=== PATIENT | female | born 1950 | race Caucasian/White ===

== ENCOUNTER 2017-12-17 07:30 | Inpatient (IN) | payer OTHER ==
[~2017-12-17] VITALS: Ht 154.9 cm; Wt 69.6 kg
[2018-05-10] VITALS (22 sets, daily range): BP systolic 110–171; BP diastolic 61–84; PULSE 56–78; RESP 10–20; Ht 154.9 cm; Wt 69.6 kg
[2018-05-10] MEDS ORDERED: CEFAZOLIN 2 GM/50 ML (PMX) 50 ML IVPB ONE (06:00)
[2018-05-10] MEDS ORDERED: SOD CHLORIDE 0.9% 1,000 ML IV SCH (06:00)
[2018-05-10] MEDS ORDERED: GLYCOPYRROLATE 0.4 MG INJ ONE (07:00)
[2018-05-10] MEDS ORDERED: NEOSTIGMINE 10 MG INJ ONE (07:00)
[2018-05-10] MEDS ORDERED: ROCURONIUM 50 MG INJ ONE (07:00)
[2018-05-10] MEDS ORDERED: ASPI-903 PO (07:15)
[2018-05-10] MEDS ORDERED: METF-849 PO (07:15)
[2018-05-10] MEDS ORDERED: SIMV20TA PO (07:15)
[2018-05-10] MEDS ORDERED: CHOL400T10 PO (07:15)
[2018-05-10] MEDS ORDERED: ALEN70TA5 PO (07:15)
[2018-05-10] MEDS ORDERED: LOSA50TA14 PO (07:15)
[2018-05-10] MEDS ORDERED: BUPIVACAINE 0.25% (MPF) 30 ML INJ ONE (07:42)
--- NOTE | 2018-05-10 07:48 | PREAC ---
Date/Time of Note Date/Time of Note DATE: 05/10/18 TIME: 07:47 Anesthesia Eval and Record Evaluation Time Pre-Procedure Interview DATE: 05/10/18 TIME: 07:47 Age 68 Sex female NPO: 8 hrs Preoperative diagnosis right lower parathyroid adenoma Planned procedure right lower parathyroidectomy Past Medical History Past Medical History: Includes Cardio: HTN, Dyslipidemia Endo: Diabetes GI: Other (fatty liver ) Surgery & Anesthesia Issues No known issue Meds Anticoagulation: No Beta Colleen within 24 hr: No Reason Beta Colleen not given: Pt. not on B-Colleen Reported Medications Cholecalciferol* (Vitamin D*) 400 Unit Tablet, 200 UNIT PO DAILY, TAB 05/10/18 Simvastatin* (Zocor*) 20 Mg Tablet, 20 MG PO QHS, #30 TAB 05/10/18 Aspirin* (Aspirin* Chew) 81 Mg Tab.chew, 81 MG PO DAILY, TAB.CHEW 05/10/18 Metformin* (Glucophage*) 500 Mg Tab, 500 MG PO WITH BREAKFAST DINNE, #30 TAB 05/10/18 Losartan Potassium* (Losartan Potassium*) 50 Mg Tablet, 50 MG PO DAILY, TAB 05/10/18 Alendronate Sodium* (Fosamax*) 70 Mg Tablet, 70 MG PO Q7D, #4 TAB 05/10/18 Current Medications Sodium Chloride 1,000 ml @ 75 mls/hr [id number] IV Last administered on 05/10/18at 07:16; Admin Dose 75 MLS/HR; Start 05/10/18 at 06:00; Stop 05/10/18 at 19:19 Meds reviewed: Yes Allergies Coded Allergies: No Known Drug Allergies (Unverified Allergy, Unknown, 05/10/18) Allergies Reviewed: Yes Labs/Studies Labs Reviewed: Reviewed by anesthesiologist test: N/A Pre-procedure Exam Last vitals Vital Signs Date Temp Pulse Resp B/P (MAP) Pulse Ox O2 O2 Flow FiO2 Time Delivery Rate 05/10/18 97.8 65 20 147/76 99 07:11 (99) Airway: Adequate mouth opening, Adequate thyromental dist Mallampati: Mallampati II Teeth: Normal Lung: Normal Heart: Normal ASA Physical Status ASA physical status: 2 Emergency: None Planned Anesthetic General/MAC: ETT Planned Pain Management Parenteral pain med Pre-operative Attestations Prior to commencing anesthesia and surgery, the patient was re-evaluated, there was verification of: *The patient's identity *The results of appropriate recent lab work and preoperative vital signs *The above evaluation not changing prior to induction *Anesthetic plan, risk benefits, alternative and complications discussed with patient/family; questions answered; patient/family understands, accepts and wishes to proceed. Meat Apprentice used CARMELO OMER MD May 10, 2018 07:48
[2018-05-10] MEDS ORDERED: MEPERIDINE 25 MG INJ IV PRN (08:00)
[2018-05-10] MEDS ORDERED: ONDANSETRON 4 MG INJ IV PRN (08:00)
[2018-05-10] MEDS ORDERED: DIPHENHYDRAMINE 50 MG INJ IV PRN (08:00)
[2018-05-10] MEDS ORDERED: FENTAnyl 50 MCG/ML VIAL IV PRN (08:00)
[2018-05-10] MEDS ORDERED: PROCHLORPERAZINE 10 MG INJ IV PRN (08:00)
[2018-05-10] MEDS ORDERED: OXYCODONE/ACETAMINOPHEN (5/325) TAB PO PRN (08:00)
[2018-05-10] MEDS ORDERED: SUCCINYLCHOLINE CHLORIDE 100 MG/5 ML SYG IV ONE (08:11)
[2018-05-10] MEDS ORDERED: LIDOCAINE 2% (SDV) 5 ML INJ ONE (08:11)
[2018-05-10] MEDS ORDERED: PROPOFOL 20 ML ONE (08:11)
[2018-05-10] MEDS ORDERED: MIDAZOLAM 1 MG/ML 2 ML INJ ONE (08:11)
[2018-05-10] MEDS ORDERED: CEFAZOLIN 1 GM INJ ONE (08:18)
[2018-05-10] MEDS ORDERED: ONDANSETRON 4 MG INJ ONE ×2 (08:29→10:28)
[2018-05-10] MEDS ORDERED: FAMOTIDINE 20 MG INJ ONE (08:29)
--- NOTE | 2018-05-10 10:21 | PAC ---
Date/Time of Note Date/Time of Note DATE: 05/10/18 TIME: 10:21 Post-Anesthesia Notes Post-Anesthesia Note Last documented vital signs Vital Signs Date Temp Pulse Resp B/P (MAP) Pulse Ox O2 O2 Flow FiO2 Time Delivery Rate 05/10/18 97.8 65 20 147/76 99 07:11 (99) Activity: WNL Respiratory function: WNL Cardiovascular function: WNL Mental status: Baseline Pain reasonably controlled: Yes Hydration appropriate: Yes Nausea/Vomiting absent: Yes Comments BP: 120/67 HR: 76 RR: 15 T: 97.5 SaO2: 100% CARMELO OMER MD May 10, 2018 10:21
--- NOTE | 2018-05-10 10:23 | OPR ---
Date/Time of Note Date/Time of Note DATE: 05/10/18 TIME: 10:13 Operative Report Procedure Date: May 10, 2018 Preoperative Diagnosis hyperparathyroidism Postoperative Diagnosis same Operation/Procedure Performed 1. right thyroid partial lobectomy 2. localized adjacent tissue transfer with the use of skin flaps 16 sq cm defect of the neck 3. therapeutic injection of subcutaneous local anesthesia Surgeon see signature line Experimental Display Builder none Anesthesia Type: general Estimated Blood Loss: 10 - 50 ml's Transfusion none Specimen right partial thyroid Grafts/Implants none Complications none Pt Condition Post Procedure: stable Indications This is a 68-year-old female with hyperparathyroidism on blood work. She had a parathyroid scan showing suspected washout in the right lower lobe of the thyroid. She requests surgery for right parathyroidectomy. Risks alternatives benefits and percent were discussed the patient. Potential complications including but not limited to bleeding infection recurrent laryngeal nerve injury and need for a thyroid lobectomy were discussed if the parathyroid was not able to be found due to the findings on nuclear scan. Ample time was given for ques tions and all questions were answered. Patient consents to the operation. Procedure Description Patient is taken to the OR and prepped and draped in usual sterile fashion. Surgical time out was performed. IV antibiotics were given. Nuclear imaging was reviewed prior to making incision indication a question of right lower lobe parathyroid adenoma vs artifact. Collar incision was made with a 15 blade. Dissection with cautery was carried down through the platysma. Rose retractors were placed. The strap muscles were divided in the midline. Neck exploration was performed. The right lower lobe was identified. The tracheoesophageal space was explored a small biopsy was taken and sent for specimen to verify if it was thyroid accessory tissue or a parathyroid adenoma. This came back as thyroid tissue. The carotid sheath was also explored. She had an aberrant carotid anatomy with the vasculature very prominent in the surgical field. The right strap muscles were divided for better visualization. Another area of the tissue where the thymus was also biopsied and this is not come back as parathyroid adenoma. 4 quadrant exploration was performed by addressing the left side also. There were no other candidates for a parathyroid adenoma. Careful attention was made to protect the recurrent laryngeal nerve in the left side and the right side. However after further exploration decision was made to safely remove the partial right thyroid lobe with the possibility that the adenoma may be in the right thyroid lobe. This was performed by creating a tunnel posterior to the isthmus with tonsils. The right lower lobe was dissected out and the pole was carefully dissected out. The middle thyroidal vein was ligated with handheld LigaSure. The thyroid lobe was then reflected off of the trachea and was resected with leaving part of the right superior lobe. The specimen was sent. The surgical site was irrigated with irrigation and Valsalva maneuver with 40 cm of water was performed. There is no evidence of any bleeding. The strap muscles and then reapproximated with interrupted [id number] 3-0 Vicryl. The strap muscles were then reapproximated in the midline with interrupted 0 Vicryl. The platysma muscle was then reapproximated with localized adjacent tissue transfer with the use of skin flaps. This was performed with multilayer closure with interrupted 3-0 Vicryl and the skin was closed with interrupted 3-0 Vicryl and running 4-0 Monocryl. Therapeutic subcutaneous local anesthesia was injected throughout the incision site. Steri-Strips and dry dressings were applied. Roderick HINES May 10, 2018 10:23
[2018-05-10] MEDS ORDERED: MEPERIDINE 25 MG INJ ONE (10:28)
[2018-05-10] MEDS ORDERED: HYDROmorphONE 1 MG/5 ML IV SYRINGE IV ONE (10:29)
[2018-05-10] MEDS ORDERED: morphine 2 MG INJ IV PRN (10:30)
[2018-05-10] MEDS: SOD CHLORIDE 0.9% 1,000 ML IV SCH ×2 (10:40→21:33)
[2018-05-10] MEDS: HYDROmorphONE 1 MG/5 ML IV SYRINGE IV PRN ×2 (10:54→11:00)
[2018-05-10] MEDS: HYDROCODONE/APAP (5/325) TAB PO PRN ×2 (12:34→21:32)
[2018-05-10] MEDS: CEFAZOLIN 2 GM/50 ML (PMX) 50 ML IVPB SCH ×2 (15:14→21:33)
[2018-05-10] MEDS ORDERED: hydrALAzine 20 MG INJ IV PRN (17:00)
[2018-05-10] MEDS: metFORMIN 500 MG TAB PO SCH (17:06)
[2018-05-10] MEDS: INSULIN ASPART [NOVOLOG] 3 ML PEN SC SCH ×2 (17:07→21:00)
[2018-05-10] MEDS: ATORVASTATIN 10 MG TAB PO SCH (21:32)
--- NOTE | 2018-05-11 00:21 | HP ---
DATE OF ADMISSION: 05/10/2018 CHIEF COMPLAINT AND HISTORY OF PRESENT ILLNESS: The patient is a 68-year-old female who was being fo llowed by Dr. Aguilar as an outpatient for hyperparathyroidism. The patient was brought into hospital to day and underwent right thyroid partial lobectomy, localized adjacent tissue transfer with use of ski n flaps. The patient postoperatively has neck pain and is being referred to . The patient tawana es history of chest pain. No shortness of breath. No history of headache, dizziness, syncope. No h istory of fever or chills. No history of abdominal pain. The patient does have history of hypertens ion and type 2 diabetes mellitus and was on Cozaar and metformin prior to admission. The patient den ies any fever or chills. No weakness in any extremity. No numbness, tingling. The rest of the revi ew of systems was unremarkable. PAST MEDICAL HISTORY: As stated above. ALLERGIES: NONE. SOCIAL HISTORY: No smoking, no alcohol. FAMILY HISTORY: Noncontributory. PHYSICAL EXAMINATION: GENERAL: Revealed the patient to be awake, alert, fairly oriented. VITAL SIGNS: Temperature 97.5, pulse 75, respiration 18, blood pressure 156/79, O2 saturation 98% on 2 liters nasal cannula. HEENT: No eye discharge or redness. Conjunctivae and lids are normal. Oropharynx is clear. NECK: The patient is status post surgery. CHEST: Fairly clear. CARDIOVASCULAR: S1, S2 normal. No murmur. ABDOMEN: Soft, nondistended, nontender. Bowel sounds present. EXTREMITIES: No leg edema. NEUROLOGICAL: The patient is awake, alert, fairly oriented with no gross focal deficit. LABORATORY DATA: WBC 4.8, hemoglobin 12.1, platelet 168. Chemistry: Sodium 144, potassium 4.1, BUN 11, creatinine 0.4, glucose was 61. Calcium 11.3. AST, ALT within normal limit. IMPRESSION: 1. Hyperparathyroidism, status post right thyroid partial lobectomy. 2. Hypertension. 3. Dyslipidemia. PLAN: The patient will be admitted on medical floor. The patient will be started on Glucophage and sliding scale insulin. She will also resume Cozaar. We will obtain a followup CBC and BMP tomorrow. For pain control, the patient will be given Tylenol, Percocet and IV morphine. Further recommendat ion will depend upon the patient's hospital course. Dictated By: GABRIEL THAKKAR/MAHI Conf#: [id number] DID#: [id number] CC: TANYA AGUILAR MD;*EndCC*
[2018-05-11 01:41] VITALS: BP 100/55; PULSE 67; RESP 16
[2018-05-11] MEDS: CEFAZOLIN 2 GM/50 ML (PMX) 50 ML IVPB SCH (05:40)
[2018-05-11] MEDS: HYDROCODONE/APAP (5/325) TAB PO PRN (05:41)
[2018-05-11 07:33] VITALS: BP 100/57; PULSE 16; PULSE 67; RESP 16
[2018-05-11] MEDS: INSULIN ASPART [NOVOLOG] 3 ML PEN SC SCH ×4 (08:00→20:39)
[2018-05-11] MEDS: SOD CHLORIDE 0.9% 1,000 ML IV SCH ×2 (08:11→18:39)
[2018-05-11] MEDS: LOSARTAN 50 MG TAB PO SCH (08:48)
[2018-05-11] MEDS: metFORMIN 500 MG TAB PO SCH ×2 (08:48→17:14)
[2018-05-11] MEDS: ACETAMINOPHEN 500 MG TAB PO PRN ×2 (10:54→20:41)
--- NOTE | 2018-05-11 13:43 | PN ---
Date/Time of Note Date/Time of Note DATE: 05/11/18 TIME: 13:42 Assessment/Plan VTE Prophylaxis Risk score (from Nsg)>0 risk: 2 SCD applied (from Nsg): Yes Pharmacological prophylaxis: other Lines/Catheters IV Catheter Type (from Nrsg): Peripheral IV Assessment/Plan Assessment/Plan s/p right neck exploration and right thyroid lobectomy ok to dc home today and f/u in 2 weeks Result Diagram: 05/11/18 0656 05/11/18 0656 Results 24hrs Laboratory Tests Test 05/10/18 17:01 05/10/18 21:29 05/11/18 06:56 05/11/18 08:08 Bedside Glucose 128 161 139 White Blood Count 6.6 # Red Blood Count 3.86 L Hemoglobin 10.9 L Hematocrit 34.2 L Mean Corpuscular Volume 88.6 Mean Corpuscular 28.2 L Hemoglobin Mean Corpuscular 31.9 L Hemoglobin Concent Red Cell Distribution 13.0 Width Platelet Count 152 Mean Platelet Volume 10.3 Immature Granulocytes % 0.200 Neutrophils % 69.0 Lymphocytes % 18.4 Monocytes % 11.1 H Eosinophils % 1.1 Basophils % 0.2 Nucleated Red Blood 0.0 Cells % Immature Granulocytes # 0.010 Neutrophils # 4.5 Lymphocytes # 1.2 Monocytes # 0.7 Eosinophils # 0.1 Basophils # 0.0 Nucleated Red Blood 0.0 Cells # Sodium Level 140 Potassium Level 4.0 Chloride Level 106 Carbon Dioxide Level 26 Anion Gap 8 Blood Urea Nitrogen 11 Creatinine 0.64 Est Glomerular Filtrat > 60 Rate mL/min Glucose Level 140 Calcium Level 9.1 Total Bilirubin 0.4 Direct Bilirubin 0.00 Indirect Bilirubin 0.4 Aspartate Amino 28 Transf (AST/SGOT) Alanine 35 Aminotransferase (ALT/SG PT) Alkaline Phosphatase 94 Total Protein 6.5 Albumin 3.6 Globulin 2.90 Albumin/Globulin Ratio 1.24 Test 05/11/18 12:25 Bedside Glucose 107 Subjective 24 Hr Interval Summary Free Text/Dictation patient with a normal voice and no evidence of recurrent laryngeal nerve damage. Long discussion was held about the reason for the neck exploration and the right thyroid lobectomy as a parathyroid adenoma was not found in the typical location that was indicated by the nuclear scan. Hence a right thyroid lobectomy was performed. PTH is pending. Exam/Review of Systems Exam Vitals Vital Signs Date Temp Pulse Resp B/P (MAP) Pulse Ox O2 O2 Flow FiO2 Time Delivery Rate 05/11/18 99.1 67 16 100/57 91 Room Air 07:33 (71) 05/10/18 2.0 12:52 Intake and Output 05/10/18 05/10/18 05/11/18 1515:00 23:00 07:00 IntakeIntake Total 1500 ml 2660 ml 950 ml OutputOutput Total 5 ml 1200 ml BalanceBalance 1495 ml 1460 ml 950 ml Exam c/d/i voice normal otherwise no issues Results Results 24hrs Laboratory Tests Test 05/10/18 17:01 05/10/18 21:29 05/11/18 06:56 05/11/18 08:08 Bedside Glucose 128 161 139 White Blood Count 6.6 # Red Blood Count 3.86 L Hemoglobin 10.9 L Hematocrit 34.2 L Mean Corpuscular Volume 88.6 Mean Corpuscular 28.2 L Hemoglobin Mean Corpuscular 31.9 L Hemoglobin Concent Red Cell Distribution 13.0 Width Platelet Count 152 Mean Platelet Volume 10.3 Immature Granulocytes % 0.200 Neutrophils % 69.0 Lymphocytes % 18.4 Monocytes % 11.1 H Eosinophils % 1.1 Basophils % 0.2 Nucleated Red Blood 0.0 Cells % Immature Granulocytes # 0.010 Neutrophils # 4.5 Lymphocytes # 1.2 Monocytes # 0.7 Eosinophils # 0.1 Basophils # 0.0 Nucleated Red Blood 0.0 Cells # Sodium Level 140 Potassium Level 4.0 Chloride Level 106 Carbon Dioxide Level 26 Anion Gap 8 Blood Urea Nitrogen 11 Creatinine 0.64 Est Glomerular Filtrat > 60 Rate mL/min Glucose Level 140 Calcium Level 9.1 Total Bilirubin 0.4 Direct Bilirubin 0.00 Indirect Bilirubin 0.4 Aspartate Amino 28 Transf (AST/SGOT) Alanine 35 Aminotransferase (ALT/SG PT) Alkaline Phosphatase 94 Total Protein 6.5 Albumin 3.6 Globulin 2.90 Albumin/Globulin Ratio 1.24 Test 05/11/18 12:25 Bedside Glucose 107 Medications Medication Current Medications Influenza Virus Vaccine Quadrival (Fluzone) 0.5 ml ONCE ONCE IM* ; Start 05/12/18 at 09:00; Stop 05/12/18 at 09:01 Cefazolin Sodium/ Dextrose 50 ml @ 100 mls/hr Q8H IVPB Last administered on 05/11/18 05:40; Admin Dose 100 MLS/HR; Start 05/10/18 at 14:00; Stop 05/11/18 at 13:59 Morphine Sulfate (morphine) 2 mg Q2H PRN IV PAIN LEVEL 6-10 Last administered on 05/10/18 17:06; Admin Dose 2 MG; Start 05/10/18 at 10:30 Acetaminophen/ Hydrocodone Bitart ([place] (5/325)) 1 tab Q6H PRN PO PAIN LEVEL 6-10 Last administered on 05/11/18 05:41; Admin Dose 1 TAB; Start 05/10/18 at 10 :30 Sodium Chloride 1,000 ml @ 100 mls/hr Q10H IV Last administered on 05/11/18 08:11; Admin Dose 100 MLS/HR; Start 05/10/18 at 10:40 Losartan Potassium (Cozaar) 50 mg DAILY PO Last administered on 05/11/18 08:48; Admin Dose 50 MG; Start 05/11/18 at 09:00 Metformin HCl (Glucophage) 500 mg WITH BREAKFAST DINNE PO Last administered on 05/11/18 08:48; Admin Dose 500 MG; Start 05/10/18 at 18:00 Atorvastatin Calcium (Lipitor) 10 mg DAILY@21 PO Last administered on 05/10/18 21:32; Admin Dose 10 MG; Start 05/10/18 at 21:00 Hydralazine HCl (Apresoline) 10 mg Q4H PRN IV >150/95; Start 05/10/18 at 17:00 Insulin Aspart (Novolog Insulin Pen) NOVOLOG *MILD* ALGORITHM WITH MEALS BEDTIME SC ; Start 05/10/18 at 18:00 Acetaminophen (Tylenol Tab) 500 mg Q4H PRN PO MILD PAIN(1-3)OR ELEVATED TEMP Last administered on 05/11/18 10:54; Admin Dose 500 MG; Start 05/11/18 at 00:00 Roderick HINES May 11, 2018 13:43
--- NOTE | 2018-05-11 14:48 | PN ---
Date/Time of Note Date/Time of Note DATE: 05/11/18 TIME: 14:43 Assessment/Plan VTE Prophylaxis Risk score (from Nsg)>0 risk: 2 SCD applied (from Nsg): Yes Lines/Catheters IV Catheter Type (from Nrsg): Peripheral IV Assessment/Plan Assessment/Plan 1. Hyperparathyroidism, status post right thyroid partial lobectomy. 2. Hypertension. 3. Dyslipidemia. 4. DM - Glucophage and sliding scale insulin. She will also resume Cozaar. We will obtain a followup CBC and BMP tomorrow. For pain control, the patient will be given Tylenol, Percocet and IV morphine. Further recommendation will depend upon the patient's hospital course. Result Diagram: 05/11/18 0656 05/11/18 0656 Results 24hrs Laboratory Tests Test 05/10/18 17:01 05/10/18 21:29 05/11/18 06:56 05/11/18 08:08 Bedside Glucose 128 161 139 White Blood Count 6.6 # Red Blood Count 3.86 L Hemoglobin 10.9 L Hematocrit 34.2 L Mean Corpuscular Volume 88.6 Mean Corpuscular 28.2 L Hemoglobin Mean Corpuscular 31.9 L Hemoglobin Concent Red Cell Distribution 13.0 Width Platelet Count 152 Mean Platelet Volume 10.3 Immature Granulocytes % 0.200 Neutrophils % 69.0 Lymphocytes % 18.4 Monocytes % 11.1 H Eosinophils % 1.1 Basophils % 0.2 Nucleated Red Blood 0.0 Cells % Immature Granulocytes # 0.010 Neutrophils # 4.5 Lymphocytes # 1.2 Monocytes # 0.7 Eosinophils # 0.1 Basophils # 0.0 Nucleated Red Blood 0.0 Cells # Sodium Level 140 Potassium Level 4.0 Chloride Level 106 Carbon Dioxide Level 26 Anion Gap 8 Blood Urea Nitrogen 11 Creatinine 0.64 Est Glomerular Filtrat > 60 Rate mL/min Glucose Level 140 Calcium Level 9.1 Total Bilirubin 0.4 Direct Bilirubin 0.00 Indirect Bilirubin 0.4 Aspartate Amino 28 Transf (AST/SGOT) Alanine 35 Aminotransferase (ALT/SG PT) Alkaline Phosphatase 94 Total Protein 6.5 Albumin 3.6 Globulin 2.90 Albumin/Globulin Ratio 1.24 Test 05/11/18 12:25 Bedside Glucose 107 Subjective 24 Hr Interval Summary Free Text/Dictation c/o tingling fongers- am BMP; Mag am;will oreder neurontin Exam/Review of Systems Exam Vitals Vital Signs Date Temp Pulse Resp B/P (MAP) Pulse Ox O2 O2 Flow FiO2 Time Delivery Rate 05/11/18 99.1 67 16 100/57 91 Room Air 07:33 (71) 05/10/18 2.0 12:52 Intake and Output 05/10/18 05/10/18 05/11/18 1515:00 23:00 07:00 IntakeIntake Total 1500 ml 2660 ml 950 ml OutputOutput Total 5 ml 1200 ml BalanceBalance 1495 ml 1460 ml 950 ml Results Results 24hrs Laboratory Tests Test 05/10/18 17:01 05/10/18 21:29 05/11/18 06:56 05/11/18 08:08 Bedside Glucose 128 161 139 White Blood Count 6.6 # Red Blood Count 3.86 L Hemoglobin 10.9 L Hematocrit 34.2 L Mean Corpuscular Volume 88.6 Mean Corpuscular 28.2 L Hemoglobin Mean Corpuscular 31.9 L Hemoglobin Concent Red Cell Distribution 13.0 Width Platelet Count 152 Mean Platelet Volume 10.3 Immature Granulocytes % 0.200 Neutrophils % 69.0 Lymphocytes % 18.4 Monocytes % 11.1 H Eosinophils % 1.1 Basophils % 0.2 Nucleated Red Blood 0.0 Cells % Immature Granulocytes # 0.010 Neutrophils # 4.5 Lymphocytes # 1.2 Monocytes # 0.7 Eosinophils # 0.1 Basophils # 0.0 Nucleated Red Blood 0.0 Cells # Sodium Level 140 Potassium Level 4.0 Chloride Level 106 Carbon Dioxide Level 26 Anion Gap 8 Blood Urea Nitrogen 11 Creatinine 0.64 Est Glomerular Filtrat > 60 Rate mL/min Glucose Level 140 Calcium Level 9.1 Total Bilirubin 0.4 Direct Bilirubin 0.00 Indirect Bilirubin 0.4 Aspartate Amino 28 Transf (AST/SGOT) Alanine 35 Aminotransferase (ALT/SG PT) Alkaline Phosphatase 94 Total Protein 6.5 Albumin 3.6 Globulin 2.90 Albumin/Globulin Ratio 1.24 Test 05/11/18 12:25 Bedside Glucose 107 Medications Medication Current Medications Influenza Virus Vaccine Quadrival (Fluzone) 0.5 ml ONCE ONCE IM* ; Start 05/12/18 at 09:00; Stop 05/12/18 at 09:01 Morphine Sulfate (morphine) 2 mg Q2H PRN IV PAIN LEVEL 6-10 Last administered o n 3/1/19at 17:06; Admin Dose 2 MG; Start 05/10/18 at 10:30 Acetaminophen/ Hydrocodone Bitart ([place] (5/325)) 1 tab Q6H PRN PO PAIN LEVEL 6-10 Last administered on 05/11/18 05:41; Admin Dose 1 TAB; Start 05/10/18 at 10:30 Sodium Chloride 1,000 ml @ 100 mls/hr Q10H IV Last administered on 05/11/18 08 :11; Admin Dose 100 MLS/HR; Start 05/10/18 at 10:40 Losartan Potassium (Cozaar) 50 mg DAILY PO Last administered on 05/11/18 08:48; Admin Dose 50 MG; Start 05/11/18 at 09:00 Metformin HCl (Glucophage) 500 mg WITH BREAKFAST DINNE PO Last administered on 05/11/18 08:48; Admin Dose 500 MG; Start 05/10/18 at 18:00 Atorvastatin Calcium (Lipitor) 10 mg DAILY@21 PO Last administered on 05/10/18at 21:32; Admin Dose 10 MG; Start 05/10/18 at 21:00 Hydralazine HCl (Apresoline) 10 mg Q4H PRN IV >150/95; Start 05/10/18 at 17:00 Insulin Aspart (Novolog Insulin Pen) NOVOLOG *MILD* ALGORITHM WITH MEALS BEDTIME SC ; Start 05/10/18 at 18:00 Acetaminophen (Tylenol Tab) 500 mg Q4H PRN PO MILD PAIN(1-3)OR ELEVATED TEMP Last administered on 05/11/18 10:54; Admin Dose 500 MG; Start 05/11/18 at 00:00 COMFORT COLMENARES May 11, 2018 14:48
[2018-05-11] MEDS: GABAPENTIN 100 MG CAP NGT SCH ×2 (17:12→20:39)
[2018-05-11 20:09] VITALS: BP 124/58; PULSE 65; RESP 18
[2018-05-11] MEDS: ATORVASTATIN 10 MG TAB PO SCH (20:39)
[2018-05-12 01:48] VITALS: BP 130/60; PULSE 62; RESP 16
[2018-05-12] MEDS: SOD CHLORIDE 0.9% 1,000 ML IV SCH ×3 (02:40→12:31)
[2018-05-12 07:54] VITALS: BP 138/61; PULSE 51; RESP 16
[2018-05-12] MEDS: INSULIN ASPART [NOVOLOG] 3 ML PEN SC SCH ×3 (08:00→17:27)
[2018-05-12] MEDS: GABAPENTIN 100 MG CAP NGT SCH ×2 (08:05→20:17)
[2018-05-12] MEDS: metFORMIN 500 MG TAB PO SCH ×2 (08:06→17:27)
[2018-05-12] MEDS: LOSARTAN 50 MG TAB PO SCH (12:24)
--- NOTE | 2018-05-12 13:03 | PN ---
DATE: 05/12/2018 SUBJECTIVE: Follow up on right thyroid partial phlebectomy due to hypothyroidism, hypertension, dysl ipidemia. The patient is breathing comfortably. Denies any weakness in any extremity. Denies any c hest pain. No reported dizziness. The patient's heart rate was in 50s. EKG done just now revealed sinus rhythm with heart rate of 61. No fever or chills. Postoperative pain is well controlled. Con tinue awake, alert. PHYSICAL EXAMINATION: VITAL SIGNS: Temperature 97.7, pulse 61, respirations 16, blood pressure 138/61, O2 saturation 95% o n room air. HEENT: No eye discharge or redness. NECK: Without discharge or bleeding. CHEST: Clear. CARDIOVASCULAR: S1, S2 normal, no murmur. ABDOMEN: Soft, nontender. EXTREMITIES: No edema. NEUROLOGIC: The patient is awake, alert with no gross focal deficit. LABORATORY DATA: Glucose this morning 110, last calcium yesterday evening was 9.5, magnesium 1.9, TS H and T4 pending. IMPRESSION: 1. Hyperparathyroidism, status post a right thyroid lobectomy. 2. Diabetes mellitus. 3. Hypertension. 4. Dyslipidemia. PLAN: 1. Will continue Cozaar, Lipitor, metformin, sliding scale insulin. Discharge planning once cleared by surgery. Plan of care discussed with the patient's family. Dictated By: GABRIEL THAKKAR/MAHI Conf#: [id number] DID#: [id number] CC: TANYA HINES MD;*EndCC*
--- NOTE | 2018-05-12 13:50 | PN ---
DATE: 05/12/2018 Status post exploration of the neck for finding of parathyroid adenoma, and partial right thyroid lobe resection. SUBJECTIVE: Feels better. OBJECTIVE: GENERAL: Awake, alert, oriented. Voice is normal. VITAL SIGNS: Temperature 97.7, heart rate at this time is 72, respirations 16, blood pressure 138/60, saturation 95% room air. HEART: Clinically, heart is regular. LUNGS: Clear. NECK: Supple. Wound is clean, Steri-Strips are intact and also swelling of the neck and incision area. LABORATORY DATA: Labs today. [place] glucose is 100, thyroid stimulating hormone is 0.192, slightly low and thyroxine T4 is 9.7. ASSESSMENT AND PLAN: Actually patient's calcium which on admission was 11.3. Next day, which was the second day of May dropped to 9.1, post hospitalization and the patient was kept in the hospital, awaiting for the result of parathyroid hormone, but apparently, per nurse today morning, the patient's heart rate dropped and became bradycardic down to [address] Green, internal medicine attending was notified. He ordered thyroid stimulating hormone and thyroxine which the result is back now. At this time, heart rate is normal. No bradycardia. Patient does not have any chest pain. No difficulties breathing, swallowing is good. Her voice is normal. Wound is clean. So, from surgical point of view, the patient can be discharged home, but will wait for the internal medicine workday financials consultant to make a decision. The patient will be followed up by Dr. Aguilar, the surgeon, in the office after being discharged. Dictated By: PATRICE BOYKIN/MAHI Conf#: [id number] DID#: [id number] SALMA
[2018-05-12 14:38] VITALS: BP 135/65; PULSE 66; RESP 16
--- NOTE | 2018-05-12 17:41 | PDOCDIS ---
Discharge Instructions CONDITION [id number] Patient Condition: [id number] Good HOME CARE INSTRUCTIONS: [id number] Diet Instructions: [id number] Reduced Sodium ACTIVITY: [id number] Activity Restrictions: [id number] Slowly Increase Activity FOLLOW UP/APPOINTMENTS Follow-up Plan Dr. Aguilar next week PMD next week GABRIEL WATT MD May 12, 2018 17:40
[2018-05-12 19:30] VITALS: BP 152/66; PULSE 65; RESP 18
[2018-05-12] MEDS: ATORVASTATIN 10 MG TAB PO SCH (20:17)
[2018-05-13 23:33] LABS: PTH CALCIUM 11.1 mg/dL (8.6-10.4)
--- NOTE | 2018-05-16 08:49 | RADRPT ---
Vent Rate: 61 bpm RR Interval: 0 msec [place] Interval: 148 msec QRS Duration: 96 msec QT Interval: 420 msec QTC Interval: 422 msec P-R-T [place]: 59 - 54 - 47 degrees Normal sinus rhythm Normal ECG Electronically Signed By: Jean Hughes
== END 2018-05-12 21:20 | disposition home or self-care (01) | DRG 624 ==
LOC: REC 05-10 05:51 → 5EC 05-10 11:33
PROVIDERS: ADMIT Surgery; ATTEND Internal Medicine
PROC: 0HX4XZZ Transfer Neck Skin, External Approach (ICD-10-PCS; 2018-05-10)
PROC: 0GBH0ZZ Excision of Right Thyroid Gland Lobe, Open Approach (ICD-10-PCS; principal; 2018-05-10 08:00)
DX: E21.3 Hyperparathyroidism, unspecified (principal); I10 Essential (primary) hypertension; E78.5 Hyperlipidemia, unspecified; E11.9 Type 2 diabetes mellitus without complications; R00.1 Bradycardia, unspecified
CPT/HCPCS: 80048; 80053; 82962; 83735; 83970; 84436; 84443; 85025; 88307; 88331; 90686; 93005; J0690; J1170; J1815; J2175; J2250; J2270; J2405; J2710; J3010; J7030

== ENCOUNTER 2018-10-18 03:13 | Emergency (ER) | payer OTHER ==
[~2018-10-18] VITALS: Ht 154.9 cm; Wt 68.4 kg
[~2018-10-18 03:13] MED LIST: ALEN70TA5 PO; ASPI-903 PO; CHOL400T10 PO; LOSA50TA14 PO; METF-849 PO; OMEG1CAP2 PO; SIMV20TA PO
[2018-10-18 03:16] VITALS: Ht 154.9 cm; Wt 68.4 kg
[2018-10-18] MEDS ORDERED: SOD CHLORIDE 0.9% 500 ML IV STA (03:49)
[2018-10-18] MEDS ORDERED: METOCLOPRAMIDE 10 MG INJ IV STA (03:49)
[2018-10-18] MEDS ORDERED: KETOROLAC 30 MG INJ IV STA (03:49)
--- NOTE | 2018-10-18 03:56 | ERD ---
ER Documentation Chief Complaint Chief Complaint SYNCOPAL EPISODE TODAY. HPI 68-year-old female presenting after near syncopal episode today. She states that she had right-sided head pain that was throbbing, aching, radiating to the back of her head with associated left-sided arm and leg tingling. This lasted about 5 minutes and her tingling resolved. However she still complains of a right-sided headache. She has never experienced this type of headache before. Currently the pain is a 5 out of 10. She is feeling much better. She denies any dizziness, focal weakness or numbness. No vision disturbance, nausea or vomiting. [place] and they recommended she go to the ER for evaluation prior to boarding the plane. This is why she is here right now. ROS All systems reviewed and are negative except as per history of present illness. Medications Home Meds Reported Medications [place]-3 Acid Ethyl Esters (Lovaza) 1 Gm Capsule, 4 GM PO DAILY, CAP 10/18/18 Simvastatin* (Zocor*) 20 Mg Tablet, 20 MG PO QHS, #30 TAB 05/10/18 Aspirin* (Aspirin* Chew) 81 Mg Tab.chew, 81 MG PO DAILY, TAB.CHEW 05/10/18 Metformin* (Glucophage*) 500 Mg Tab, 500 MG PO WITH BREAKFAST DINNE, #30 TAB 05/10/18 Losartan Potassium* (Losartan Potassium*) 50 Mg Tablet, 50 MG PO DAILY, TAB 05/10/18 Discontinued Reported Medications Cholecalciferol* (Vitamin D*) 400 Unit Tablet, 200 UNIT PO DAILY, TAB 05/10/18 Alendronate Sodium* (Fosamax*) 70 Mg Tablet, 70 MG PO Q7D, #4 TAB 05/10/18 Allergies Allergies: Coded Allergies: No Known Drug Allergies (Unverified Allergy, Unknown, 05/10/18) PMhx/Soc Medical and Surgical Hx: pt denies Surgical Hx History of Surgery: No Anesthesia Reaction: No Hx Neurological Disorder: No Hx Respiratory Disorders: No Hx Cardiac Disorders: Yes (HTN, HYPERLIPIDEMIA) Hx Psychiatric Problems: No Hx Miscellaneous Medical Probl: Yes (Hyperparathyroidism) Hx Alcohol Use: No Hx Substance Use: No Hx Tobacco Use: No Smoking Status: Never smoker FmHx Family History: No diabetes Physical Exam Vitals Vital Signs Date Temp Pulse Resp B/P (MAP) Pulse Ox O2 O2 Flow FiO2 Time Delivery Rate 10/18/18 96.8 81 18 140/81 99 Room Air 05:34 (100) 10/18/18 71 18 143/83 99 Room Air 03:27 (103) 10/18/18 96.8 74 16 127/71 99 03:16 (89) Physical Exam Const: No acute distress Head: Atraumatic Eyes: Normal Conjunctiva, PERRLA, EOMI, no nystagmus ENT: Normal External Ears, Nose and Mouth. Neck: Full range of motion. No meningismus. Resp: Clear to auscultation bilaterally Cardio: Regular rate and rhythm, no murmurs. 2+ distal pulses in all 4 extremities Abd: Soft, non tender, non distended. Normal bowel sounds Skin: No petechiae or rashes Back: No midline or flank tenderness Ext: No cyanosis, or edema Neur: Awake and alert, oriented x3, cranial nerves intact, strength and sensations intact in all 4 extremities. Psych: Normal Mood and Affect Result Diagram: 10/18/18 0354 10/18/18 0354 Results 24 hrs Laboratory Tests Test 10/18/18 03:54 10/18/18 04:21 White Blood Count 5.8 10^3/ul Red Blood Count 4.83 10^6/ul Hemoglobin 13.7 g/dl Hematocrit 41.1 % Mean Corpuscular Volume 85.1 fl Mean Corpuscular Hemoglobin 28.4 pg Mean Corpuscular Hemoglobin Concent 33.3 g/dl Red Cell Distribution Width 12.6 % Platelet Count 188 10^3/UL Mean Platelet Volume 10.4 fl Immature Granulocytes % 0.300 % Neutrophils % 55.9 % Lymphocytes % 32.5 % Monocytes % 9.1 % Eosinophils % 1.7 % Basophils % 0.5 % Nucleated Red Blood Cells % 0.0 /100WBC Immature Granulocytes # 0.020 10^3/ul Neutrophils # 3.3 10^3/ul Lymphocytes # 1.9 10^3/ul Monocytes # 0.5 10^3/ul Eosinophils # 0.1 10^3/ul Basophils # 0.0 10^3/ul Nucleated Red Blood Cells # 0.0 10^3/ul Sodium Level 141 mmol/L Potassium Level 4.0 mmol/L Chloride Level 107 mmol/L Carbon Dioxide Level 25 mmol/L Anion Gap 9 Blood Urea Nitrogen 8 mg/dl Creatinine 0.51 mg/dl Est Glomerular Filtrat Rate mL/min > 60 mL/min Glucose Level 136 mg/dl Calcium Level 10.8 mg/dl POC Beta HCG, Qualitative NEGATIVE Current Medications Medications Dose Sig/Angely Start Time Status Last (Trade) Ordered Route PRN Stop Time Admin Dose Reason Admin Sodium 500 ml @ Q1H STAT 10/18/18 DC 10/18/18 Chloride 500 mls/hr IV 03:49 10/18/18 04:13 04:48 10 mg ONCE STAT 10/18/18 DC 10/18/18 Metoclopramid IV 03:49 10/18/18 04:14 e HCl 03:51 (Reglan) Ketorolac 30 mg ONCE STAT 10/18/18 DC 10/18/18 Tromethamine IV 03:49 10/18/18 04:32 (Toradol) 03:51 Procedures/MDM EMERGENT LABS AND DIAGNOSTIC STUDIES: Lab Results above were reviewed and interpreted by me. CBC: no anemia or evidence of infection BMP: Mild hypercalcemia, likely secondary to parathyroid disorder. No e/o clinically significant electrolyte abnormality severe acidosis, alkalosis, renal failure, diabetic ketoacidosis 12-lead EKG was interpreted by Jono Burrows MD: Sinus bradycardia with ventricular rate of 50 beats per minute Normal axis Normal intervals No acute ST or T wave changes suggestive of acute ischemia or STEMI. Radiology Results as interpreted by Radiology below were reviewed by SBrandy Burrows MD: CT head shows no acute abnormalities Initial Nursing notes reviewed. Previous Medical Records requested via the Electronic Health Record. EMERGENCY DEPARTMENT COURSE / MEDICAL DECISION MAKING: Patient is presenting with right-sided headache and numbness that has since resolved. I have a low suspicion for TIA, dissection, acute coronary syndrome, CVA or intracranial hemorrhage. However since the patient has never had a headache like this before and it is within 6 hours of her headache starting, I did a CT of her head to evaluate for possible subarachnoid hemorrhage which was negative. My suspicion for intracranial hemorrhage at this point is very low. Labs are unremarkable. Patient's symptoms have completely resolved after treatment here in the ER. I feel she is stable for discharge with continued outpatient follow-up. Strict return precautions discussed. Patient's blood pressure was elevated (>120/80) but appears stable without evidence of hypertensive emergency or urgency. The patient was counseled about the risks of hypertension and urged to pursue outpatient monitoring and therapy within a week with their primary care physician. Departure Diagnosis: Primary Impression: Headache, acute Headache type: unspecified Intractability: not intractable Qualified Codes: R51 - Headache Additional Impression: Paresthesias Condition: Stable SANTOSH BURROWS MD Oct 18, 2018 03:56
[2018-10-18 05:34] VITALS: BP 140/81; PULSE 81; RESP 18
== END 2018-10-18 05:35 | disposition home or self-care (01) ==
LOC: E/R 03:13
DX: R51 Headache (principal); R20.2 Paresthesia of skin; I10 Essential (primary) hypertension; E11.9 Type 2 diabetes mellitus without complications; Z79.82 Long term (current) use of aspirin; Z79.84 Long term (current) use of oral hypoglycemic drugs
CPT/HCPCS: 36415; 70450; 80048; 81025; 85025; 93005; 96374; 96375; J1885; J2765; J7040; Z7502